=== PATIENT | male | born 1950 | race Caucasian/White ===

== ENCOUNTER 2016-07-17 06:55 | Day surgery (SDC) | payer MEDICARE, BC ==
[~2016-07-17] VITALS: Ht 157.5 cm; Wt 127.3 kg
[2016-07-17] VITALS (8 sets, daily range): BP systolic 89–174; BP diastolic 51–102; PULSE 62–92; RESP 18–20; TEMP 97.8–98; O2SAT 62–95
[~2016-07-17 06:55] MED LIST: ASPI325T PO; ATEN-100 PO; CLEAPOW6 PO; CYCL-36 PO; DIPH2%T PO; ENOX40P SQ; FURO1TAB93 PO; LORTA5 PO; Z.0.COMMODE-3:1; Z.0.CPM; Z.0.WALKERFRONT; ZOCO40TA PO
[2016-07-17] MEDS ORDERED: MEDI220T PO (07:17)
[2016-07-17] MEDS ORDERED: MIRA3350 (07:17)
[2016-07-17] MEDS ORDERED: ATEN25TA PO (07:17)
[2016-07-17] MEDS ORDERED: UNIS50CA PO (07:17)
[2016-07-17] MEDS ORDERED: ZOCO40TA PO (07:17)
[2016-07-17] MEDS ORDERED: FURO40TA PO (07:17)
[2016-07-17] MEDS ORDERED: LIDOCAINE 1%/EPINEPHrine 1:100,000 SOLN 20 ML VIAL ONE (07:45)
[2016-07-17] MEDS ORDERED: SODIUM CHLOR 0.9% 1000 ML INJ 1,000 ML IV SCH (07:45)
[2016-07-17] MEDS ORDERED: MIDAZOLAM HCL 5 MG/5 ML VIAL ONE (08:15)
[2016-07-17] MEDS ORDERED: fentaNYL CITRATE 250 MCG/5 ML AMP ONE (08:15)
--- NOTE | 2016-07-17 08:54 | PD.RAD ---
Post CT Procedure Prog Note Pre Procedure Diagnosis: (1) LFTs abnormal Post Procedure Diagnosis: (1) LFTs abnormal Procedure Date: Jul 17, 2016 Supervising Radiologist: Richar Woods JR Proceduralist/Assist: RT Anjelica(R)(CT) Anesthesia: Conscious Sedation Plan of Activity Patient to Unit: ROPU Patient Condition: Good See PACS Report for procedural detail/treatment Biopsy Imaging Guidance: CT Biopsy Procedure: Liver Specimen: Core Biopsy Findings: Good core sample obtained. Post CT shows no signs of hemorrhage. Jr. Chuck,Richar Merritt MD Jul 17, 2016 08:54
--- NOTE | 2016-07-17 09:56 | RADRPT ---
EXAM DATE/TIME: 07/17/2016 08:23 [place] COMPARISON: No previous studies available for comparison. INDICATIONS : Elevated liver function. SEDATION TIME: 30 minutes BIOPSY SITE: Right MEDICATION(S): 1.) 4 mg midazolam (Versed) IV 2.) 200 mcg fentanyl (Sublimaze) IV DEVICE(S): 1.) 18 gauge BioPince needle MEDICAL HISTORY : Hypertension. SURGICAL HISTORY : None. ENCOUNTER: Initial ACUITY: 1 day PAIN SCORE: 0/10 LOCATION: Right A total of one core specimen(s) were obtained and sent to the laboratory for pathologic evaluation. PROCEDURE: 1. CT guided liver biopsy. 2. Conscious sedation with continuous EKG and oximetry monitoring. 3. EKG and oximetry remained stable throughout the procedure. Prior to the procedure informed consent was obtained. Any appropriate prior imaging studies were rev iewed. The site was prepped in a sterile fashion. Full sterile technique was used, including cap, mask, tess rile gloves and gown and a large sterile sheet. Hand hygiene and 2% chlorhexidine and/or betadine/al cohol prep was utilized per protocol for cutaneous antisepsis. The skin and subcutaneous tissues wer e infiltrated with local anesthetic solution. With CT guidance the previously identified target was localized. Biopsy was performed using the presc ribed needle as above. Adequate hemostasis was obtained with compression at the puncture site. Follow-up CT scan reveals no hemorrhage. The patient tolerated the procedure well and there were no complications. The patient was returned to the Radiology Outpatient Unit in stable condition. CONCLUSION: Uncomplicated CT guided liver core biopsy. Richar Woods Jr., MD on July 17, 2016 at 9:54 Board Certified Radiologist. This report was verified electronically.
== END 2016-07-17 12:50 | disposition home or self-care (01) ==
LOC: HRAD 06:55 → HRIP 06:58 → EDSTATUS 08:00 → HRAD 12:50
DX: R74.8 Abnormal levels of other serum enzymes (principal); K75.81 Nonalcoholic steatohepatitis (NASH); I10 Essential (primary) hypertension
CPT/HCPCS: 47000; 77012; 88307; 88313; J2250; J3010; J7030